=== PATIENT | female | born 1935 | race Caucasian/White ===

== ENCOUNTER 2020-01-10 12:05 | Day surgery (SDC) | payer MEDICARE, OTHER ==
[~2020-01-10] VITALS: Ht 157.5 cm; Wt 63.6 kg
[~2020-01-10 12:05] MED LIST: AMLO5TAB9 PO; ASPI-1111 PO; DOCU-275 PO; LISI-662 PO; METO25XL PO; PROCTOCM TP; RANI150T7 PO; SODIUM CHLORIDE 0.9% 1,000 ML IV ONE; SODIUM CHLORIDE 0.9% 1,000 ML ONE
[2020-01-10] MEDS ORDERED: LIDOCAINE 1% 10 ML VIAL IM ONE (12:06)
[2020-01-10] MEDS ORDERED: PROPOFOL 1% 20 ML VIAL IVP ONE (12:06)
== END 2020-01-10 15:30 | disposition home or self-care (01) ==
LOC: SURGERY 12:05
PROVIDERS: ATTEND Student in an Organized Health Care Education/Training Program
DX: R12 Heartburn (principal); R10.11 Right upper quadrant pain; K44.9 Diaphragmatic hernia without obstruction or gangrene; K31.89 Other diseases of stomach and duodenum; K29.50 Unspecified chronic gastritis without bleeding; K21.0 Gastro-esophageal reflux disease with esophagitis; F32.9 Major depressive disorder, single episode, unspecified; E66.9 Obesity, unspecified; Z68.31 Body mass index [BMI] 31.0-31.9, adult; Z95.0 Presence of cardiac pacemaker; Z79.899 Other long term (current) drug therapy
CPT/HCPCS: 43239; 88305; 88312; 93005; C1769; J2704; J3490; J7030